=== PATIENT | male | born 1975 | race Caucasian/White ===

== ENCOUNTER 2018-12-14 20:41 | Emergency (ER) | payer BC, OTHER ==
--- NOTE | 2018-12-14 21:15 | UC ---
Lower Extremity/Ankle HPI - HPI Summary HPI Summary: 43 yo male s/p inversion injury to left ankle able to bear wt with pain - History of Current Complaint Stated Complaint: LEFT ANKLE INJURY Time Seen by Provider: 12/14/18 21:09 Hx Obtained From: Patient Onset/Duration: Sudden Onset Severity Initially: Severe Severity Currently: Severe Pain Intensity: 8 Pain Scale Used: 0-10 Numeric Aggravating Factor(s): Standing, Ambulation Alleviating Factor(s): Rest Able to Bear Weight: Yes Feet (Multiple View): 1 - lat STS, tender 2 - tender - Allergies/Home Medications Allergies/Adverse Reactions: Allergies Allergy/AdvReac Type Severity Reaction Status Date / Time No Known Allergies Allergy Verified 12/14/18 21:21 Home Medications: Home Medications PARoxetine HCL TAB* [Paxil TAB*] 20 mg PO DAILY 12/14/18 [History Confirmed 09/27] PMH/Surg Hx/FS Hx/Imm Hx Previously Healthy: Yes Cardiovascular History: Cardiac Disease - Family History Known Family History: Positive: Cardiac Disease, Hypertension - Social History Type: Cigarettes Review of Systems All Other Systems Reviewed And Are Negative: Yes Constitutional: Positive: Negative Skin: Positive: Negative Eyes: Positive: Negative ENT: Positive: Negative Respiratory: Positive: Negative Cardiovascular: Positive: Negative Gastrointestinal: Positive: Negative Genitourinary: Positive: Negative Motor: Positive: Negative Neurovascular: Positive: Negative Musculoskeletal: Positive: Arthralgia - left ankle Neurological: Positive: Negative Psychological: Positive: Negative Physical Exam Triage Information Reviewed: Yes Appearance: Well-Appearing, No Pain Distress, Well-Nourished Vital Signs Reviewed: Yes Eyes: Positive: Conjunctiva Clear ENT: Positive: Hearing grossly normal. Negative: Nasal congestion, Nasal drainage, Trismus, Muffled voice, Hoarse voice, Sinus tenderness Dental Exam: Normal Neck: Positive: Supple, Nontender, No Lymphadenopathy Respiratory: Positive: Lungs clear, Normal breath sounds, No respiratory distress, No accessory muscle use Cardiovascular: Positive: RRR, No Murmur Musculoskeletal: Positive: ROM Limited @ - left ankle, Edema @ - lat sts, Other : - antalgic gait Psychological Exam: Normal Skin Exam: Normal Lower Extremity Course/Dx - Differential Dx/Diagnosis Provider Diagnosis: Severe sprain of left ankle Discharge - Sign-Out/Discharge Documenting (check all that apply): Patient Departure All imaging exams completed and their final reports reviewed: No - Discharge Plan Condition: Stable Disposition: HOME Prescriptions: Naproxen [Naproxen 500 mg tab] 500 mg PO BID PRN #20 tablet PRN Reason: Pain Patient Education Materials: Ankle Sprain (ED), Crutch Instructions (ED), R.I.C.E. Treatment (ED) Forms: *Work Release Referrals: Stanislaw Reyes MD [Medical Doctor] - As Soon As Possible Additional Instructions: offical xr report pending - Billing Disposition and Condition Condition: STABLE Disposition: Home
[2018-12-14 21:21] VITALS: BP 111/66
[2018-12-14] MEDS ORDERED: Naproxen TAB* 250 MG PO ONE (21:32)
--- NOTE | 2018-12-15 09:24 | UC ---
- Progress Note Progress Note: Final radiologist reading of left ankle x-ray from December 14, 2018 comes back. 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 Course/Dx - Diagnoses Provider Diagnoses: Severe sprain of left ankle Discharge - Sign-Out/Discharge Documenting (check all that apply): Patient Departure All imaging exams completed and their final reports reviewed: Yes - Discharge Plan Condition: Stable Disposition: HOME Prescriptions: Naproxen [Naproxen 500 mg tab] 500 mg PO BID PRN #20 tablet PRN Reason: Pain Patient Education Materials: Ankle Sprain (ED), Crutch Instructions (ED), R.I.C.E. Treatment (ED) Forms: *Work Release Referrals: Stanislaw Reyes MD [Medical Doctor] - As Soon As Possible Additional Instructions: offical xr report pending - Billing Disposition and Condition Condition: STABLE Disposition: Home
== END 2018-12-14 21:57 | disposition home or self-care (01) ==
LOC: UCCORT 20:41
DX: S93.402A Sprain of unspecified ligament of left ankle, initial encounter (principal); X50.0XXA Overexertion from strenuous movement or load, initial encounter; Y92.9 Unspecified place or not applicable; F17.210 Nicotine dependence, cigarettes, uncomplicated
CPT/HCPCS: 99203; A9270-GY; G0463